=== PATIENT | male | born 1965 ===

== ENCOUNTER 2021-01-18 16:30 | Emergency (ER) | payer OTHER ==
--- NOTE | 2021-01-18 16:59 | ED ---
General Adult HPI - General Stated complaint: Need Rapid Covid test Time Seen by Provider: 01/18/21 16:56 Source: patient, RN notes reviewed Mode of arrival: ambulatory Limitations: no limitations - History of Present Illness Initial comments: this is a 55-year-old male presents emergency Department with chief complaint of covid test. Patient states that he is asymptomatic states he's been fully vaccinated. Patient states that [place] brother who is not doing well [facility]. Patient has no complaints denies fevers chills bodyaches chest pain shortness breath no other complaints. - Related Data Allergies Allergy/AdvReac Type Severity Reaction Status Date / Time No Known Allergies Allergy Verified 01/18/21 16:58 Review of Systems ROS Statement: Those systems with pertinent positive or pertinent negative responses have been documented in the HPI. ROS Other: All systems not noted in ROS Statement are negative. General Exam General appearance: alert, in no apparent distress Head exam: Present: atraumatic, normocephalic, normal inspection Eye exam: Present: normal appearance, PERRL, EOMI. Absent: scleral icterus, conjunctival injection, periorbital swelling ENT exam: Present: normal exam, normal oropharynx, mucous membranes moist Neck exam: Present: normal inspection, meningismus. Absent: tenderness, lymphadenopathy Respiratory exam: Present: normal lung sounds bilaterally. Absent: respiratory distress, wheezes, rales, rhonchi, stridor Cardiovascular Exam: Present: regular rate, normal rhythm, normal heart sounds. Absent: systolic murmur, diastolic murmur, rubs, gallop, clicks Course Vital Signs 01/18/21 16:58 Temperature 98 F Pulse Rate 71 Respiratory 18 Rate Blood Pressure 130/81 O2 Sat by Pulse 98 Oximetry Medical Decision Making - Medical Decision Making Patient's test negative. Patient will be discharged. - Lab Data Lab Results 01/18/21 Range/Units 16:57 Coronavirus (PCR) Not Detected (Not Detectd) Disposition Clinical Impression: Encounter for laboratory testing for COVID-19 virus Disposition: HOME SELF-CARE Condition: Stable Additional Instructions: Please return to the Emergency Department if symptoms worsen or any other concerns. Is patient prescribed a controlled substance at d/c from ED?: No Referrals: Nonstaff,Physician [Primary Care Provider] - 1-2 days Time of Disposition: 16:59
[2021-01-18 17:00] VITALS: BP 130/81; PULSE 71; RESP 18; TEMP 98
== END 2021-01-18 17:50 | disposition home or self-care (01) ==
LOC: EC 16:30
DX: Z20.822 Contact with and (suspected) exposure to COVID-19 (principal)
CPT/HCPCS: 87635; 99283